=== PATIENT | female | born 1950 | race Caucasian/White ===

== ENCOUNTER → 2017-10-19 | Outpatient (CLI) | payer MEDICARE ==
[~2017-10-19] MED LIST: CYA1000 PO; DILT120C18 PO; ENOX120D5 SQ; FLUO40CA76 PO; HYDR-2966 PO; HYDR12.556 PO; METF500T4 PO; MULT-820 PO; NOVOLOG SUBQ; POTA2TAB29; VERA240T12 PO; WARF-1 PO
--- NOTE | 2017-10-20 11:27 | RADIOLOGY IMAGING REPORT ---
FACILITY: [facility] [place] PATIENT NAME: FAWN PONCE : [id number] MR: [id number] V: [id number] EXAM DATE: [id number] ORDERING PHYSICIAN: LONNIE MCCONNELL TECHNOLOGIST: Isabel Clarke PROCEDURE:BILATERAL DIGITAL SCREENING MAMMOGRAM WITH CAD ASSISTED INTERPRETATION & 3D TOMOSYNTHESIS COMPARISON:Prior mammograms 05/31/16, 08/22/13, 02/07/12. INDICATIONS:Screening FINDINGS: A small amount of fibroglandular tissue is seen throughout the breasts. The parenchymal pattern has remained stable allowing for difference in mammographic technique & patient positioning. There is no evidence of malignant appearing mass, malignant appearing calcifications or other secondary sign of malignancy in either breast. DIAGNOSTIC CATEGORY 1--NEGATIVE. RECOMMENDATIONS: ROUTINE MAMMOGRAM AND CLINICAL EVALUATION. IMPRESSION: BIRADS 1: Negative. No significant abnormality is seen. Dictated by: Veena Lyn M.D. on 10/19/2017 at 16:15 Transcribed by: KATHY on 10/20/2017 at 7:54 Approved by: Veena Lyn M.D. on 10/20/2017 at 11:26 [facility]
== END ==
LOC: MAMO 00:23
PROVIDERS: ATTEND Nurse Practitioner Family
DX: Z12.31 Encounter for screening mammogram for malignant neoplasm of breast (principal)
CPT/HCPCS: 77063; 77067